=== PATIENT | male | born 1970 | race Caucasian/White ===

== ENCOUNTER 2024-04-04 14:56 | Emergency (ER) | payer SELFPAY ==
[~2024-04-04] VITALS: Ht 182.9 cm; Wt 137.0 kg
[2024-04-04] MEDS: LORAZEPAM 2MG/ML INJ IM ONE ×2 (15:30→15:42)
[2024-04-04] MEDS: HALOPERIDOL LACTATE 5MG/ML VIAL IM ONE (15:30)
[2024-04-04] MEDS: DIPHENHYDRAMINE 50MG/ML VIAL IM ONE (15:30)
[2024-04-04 16:03] LABS: EOSINOPHILS % 1.9 % (0.0-5.0); HEMATOCRIT. 42.2 % (42.0-52.0); HEMOGLOBIN. 14.2 g/dL (14.0-18.0); LYMPHOCYTES % 26.2 % (20.0-50.0); MEAN CORPUSCULAR HEMOGLOBIN 33.4 pg (28.0-32.0); MEAN CORPUSCULAR HGB CONC 33.6 g/dL (31.0-37.0); MEAN CORPUSCULAR VOLUME 99.5 fL (80.0-94.0); MEAN PLATELET VOLUME 8.8 fl (7.4-10.4); MONOCYTES % 6.5 % (2.0-8.0); NEUTROPHILS % 64.4 % (40.0-76.0); PLATELET 255 x1000/uL (130-400); RED BLOOD CELL COUNT 4.24 mill/uL (4.7-6.1); RED CELL DISTRIBUTION WIDTH 14.1 % (11.6-14.6); WHITE BLOOD COUNT 6.9 x1000/uL (4.5-11.0)
[2024-04-04 16:10] LABS: POTASSIUM 3.7 mEq/L (3.5-5.1)
[2024-04-04 16:11] LABS: CALCIUM 8.7 mg/dL (8.7-10.4)
[2024-04-04] MEDS: FOLIC ACID 1 MG, THIAMINE HCL 100 MG, MVI, ADULT NO.1 10 ML in DEXTROSE 5% WATER 1,000 ML IV ONE (16:15)
[2024-04-04 16:16] LABS: CREATININE 1.3 mg/dL (0.6-1.3)
[2024-04-04 16:44] VITALS: O2SAT 95
[2024-04-04 21:59] VITALS: BP 130/75; PULSE 92; RESP 16; TEMP 37.00296; O2SAT 99
== END 2024-04-04 22:03 | disposition left against medical advice (07) ==
LOC: ER 14:56 → EDBEDREQ 16:27 → ER 22:03 → 5WST 04-05 04:01 → UNDOADMIN 04-05 04:01 → UNDODISIN 04-05 06:20
DX: F10.129 Alcohol abuse with intoxication, unspecified (principal); E11.9 Type 2 diabetes mellitus without complications; I10 Essential (primary) hypertension; Y90.9 Presence of alcohol in blood, level not specified
CPT/HCPCS: 80048; 85025; 36415; 96365; 96372; 99291; J1200; J3490 ×2; J1630; J2060; J3411; J7070; Z7610 ×2